=== PATIENT | female | born 1980 | race Asian ===

== ENCOUNTER 2016-12-23 16:30 | Emergency (ER) | payer MEDICAID ==
[~2016-12-23] VITALS: Ht 162.6 cm; Wt 54.4 kg
[2016-12-23 16:53] VITALS: BP 130/79
[2016-12-23] MEDS ORDERED: Bacitracin Oint UD TOPIC ONE (17:15)
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
[2016-12-23] MEDS ORDERED: BACITRACIN-P28.35 GM TP (17:23)
[2016-12-23] MEDS ORDERED: IBUPROFEN600 MG ORAL (17:23)
[2016-12-23] MEDS ORDERED: CYCLOBENZAPRINE10 MG ORAL (17:23)
== END 2016-12-23 17:30 | disposition home or self-care (01) ==
LOC: EMR 17:30
DX: S40.212A Abrasion of left shoulder, initial encounter (principal); V43.52XA Car driver injured in collision with other type car in traffic accident, initial encounter; Y92.410 Unspecified street and highway as the place of occurrence of the external cause
CPT/HCPCS: 99284